=== PATIENT | male | born 2000 | race Caucasian/White ===

== ENCOUNTER 2024-05-29 02:51 | Emergency (ER) | payer OTHER, SELFPAY ==
[2024-05-29 03:03] VITALS: BP 118/83
[2024-05-29 03:06] VITALS: BMI 27.3
[2024-05-29 04:00] VITALS: BP 100/65
[2024-05-29 05:00] VITALS: BP 118/66
[2024-05-29 06:00] VITALS: BP 110/64
--- NOTE | 2024-05-29 06:07 | ED.GENMED ---
History of Present Illness
General
Chief Complaint: Alcohol Problem
Source: patient
Exam Limitations: none
Time Seen by Provider: 05/29/24 02:55
Nursing documentation reviewed up to this point in time: agreed with
History of Present Illness
History of Present Illness:
Pleasant 23-year-old male that presents with acute alcohol intoxication. Patient was found sitting on the sidewalk covered in vomit. Patient requested to come to the hospital. Patient's friends called 911. Patient denies any head injury or loss
of consciousness.
Review of Systems
Review of Systems
Allergies reviewed?: Yes
All Other Systems: ROS reviewed and negative except as documented in HPI and ROS
Constitutional: Reports no symptoms
EENT: Reports no symptoms
Respiratory: Reports no symptoms
Cardiac: Reports no symptoms
ABD/GI: Reports nausea and vomiting
: Reports no symptoms
Musculoskeletal: Reports no symptoms
Skin: Reports no symptoms
Neurological: Reports no symptoms
Endocrine: Reports no symptoms
Hematologic/Lymphatic: Reports no symptoms
Psychiatric: Reports anxiety
Phy Exam
General Physical Exam
General Presentation: well appearing
General Skin: warm and dry
General Habitus: normal
General Mental: alert and appears intoxicated
General Hydration: appears well hydrated
ENT Exam
ENT Exam: EOMI, pharynx normal, neck supple and normocephalic
Eye Exam
Eye Exam: PERRL, cornea clear and conjunctiva normal
Cardiovascular Exam
Cardiovascular Exam: regular rate/rhythm, no edema, no murmur and normal peripheral pulses
Pulmonary Exam
Pulmonary Exam: lungs clear, no respiratory distress, no rales, no crackles, no rhonchi, no stridor, no wheezing and no cough
Gastrointestinal Exam
Gastrointestinal Exam: normal bowel sounds, non tender, soft, no organomegaly, no pulsatile mass and non distended
Neurological Exam
Neurological Exam: alert, oriented x3, no motor deficits and speech normal
Musculoskeletal Exam
Musculoskeletal Exam: full ROM and no edema
Skin Exam
Skin Exam: normal color, warm/dry, no rash and no petechia
Psychiatric Exam
Psychiatric Exam: normal mood/affect
Scores
Withdrawal Assessment of Alcohol
Withdrawal Assessment Completed?: Not applicable
Course
Vital Signs
Initial and Last Documented VS:
Initial Vital Signs
Temp Pulse Resp BP Pulse Ox
97.3 F 110 18 118/83 97
05/29/24 03:03 05/29/24 03:03 05/29/24 03:03 05/29/24 03:03 05/29/24 03:03
Last Documented Vital Signs
Temp Pulse Resp BP Pulse Ox
97.3 F 90 16 110/64 95
05/29/24 03:03 05/29/24 06:00 05/29/24 06:00 05/29/24 06:00 05/29/24 06:00
*Critical Care Note
Total Time (30-74mins, 75-104mins- exclusive of procedures): Not Applicable
ED Attending Note
-
Portions of this chart may have been created with voice recognition software.� Occasional wrong word or��sound alike� substitutions may have occurred due to the inherent limitations of voice recognition software.
Discharge Plan
Departure
Patient Disposition: Home (Routine Discharge)
Date of Disposition: 05/29/24
Time of Disposition: 06:10
Patient with high blood pressure during this ER visit?: No
Discharge Problem:
Alcohol intoxication
Instructions: Alcohol Use Disorder (DC), BLOOD PRESSURE
Prescriptions:
No Action
Unobtainable
0
Referrals:
[facility] [Outside]
[facility] [Outside]
NONE,* [Family Provider] -
Activity Restrictions/Additional Instructions:
It was a pleasure meeting you and taking part in your care. We hope for your continued healing and wellness.
Please read discharge instructions in their entirety. However, they are for general education and may not describe your exact diagnosis at discharge. Information on your ER visit and medical conditions were discussed with you along with appropriate
follow up information...
If indicated, please take your medications as instructed and indicated on discharge paperwork.
Please schedule a follow up appointment as directed. Call to schedule an appointment
Please return to the emergency department with ANY change in, persisting, or worsening of symptoms. If any of your symptoms do not improve, or persist, or become more severe within 6-12 hours, please return to the emergency department for further
care.
Please return to the emergency department if you develop a headache, neck pain/stiffness, fever greater than 100.4F, chest pain, shortness of breath, persistent nausea, vomiting, slurred speech, difficulty walking, numbness/tingling, weakness, signs
of infection or any other symptoms that are worrisome to you.
If you have any questions or concerns please do not hesitate to call the Hospital at or E-mail me directly at [email or web address]
Interventions
Interventions:
*Risk Screen - Suicide Last Done: 05/29/24 06:18
*General Assessment Last Done: 05/29/24 03:07
*Neglect/Abuse Screening Last Done: 05/29/24 03:08
ED- Fall Risk Assessment Last Done: 05/29/24 06:18
*ED COVID-19 Vaccine History Last Done: 05/29/24 03:07
*Nursing Disposition Last Done: 05/29/24 06:23
ED- Neurological Assessment Last Done: 05/29/24 03:27
ED-Psychological Assessment Last Done: 05/29/24 03:27
Discharge Date and Time
Discharge Date/Time: 05/29/24 06:23
Print Language: ESTONIAN
== END 2024-05-29 06:23 | disposition home or self-care (01) ==
LOC: EMR 02:51
PROVIDERS: EMERGENCY PHYSICIAN Student in an Organized Health Care Education/Training Program
DX: F10.129 Alcohol abuse with intoxication, unspecified (principal); R11.2 Nausea with vomiting, unspecified; Y92.480 Sidewalk as the place of occurrence of the external cause; F41.9 Anxiety disorder, unspecified; Z91.013 Allergy to seafood
CPT/HCPCS: 99283

== ENCOUNTER 2025-09-23 22:27 | Emergency (ER) | payer OTHER, SELFPAY ==
[2025-09-23 22:29] VITALS: BP 134/98
--- NOTE | 2025-09-23 23:12 | ED.GENMED ---
History of Present Illness
<Kati Tracey MD, Resident - Last Filed: 09/24/25 00:30>
General
Chief Complaint: Head Injury
Source: patient
Exam Limitations: none
Time Seen by Provider: 09/23/25 23:03
Nursing documentation reviewed up to this point in time: agreed with
History of Present Illness
History of Present Illness:
25yo M with no significant PMH who presents w scalp laceration following trauma to the head.
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 Had significant bleeding over his face. Denies any LOC. Now has a headache and endorses nausea. No emesis. Denies any changes
to vision/blurry vision or any new focal weakness or numbness. Says that he feels 'slow' mentally. Unsure if he is up to date on his tetanus vaccines, but knows that he had to get them for the (was in the ). Not on any blood
thinners, takes no medications. No trauma elsewhere on the body.
Past History
<Kati Tracey MD, Resident - Last Filed: 09/24/25 00:30>
Past History
ED Past Medical History: None
Review of Systems
<Kati Tracey MD, Resident - Last Filed: 09/24/25 00:30>
Review of Systems
All Other Systems: ROS reviewed and negative except as documented in HPI and ROS
Constitutional: Reports other (feels foggy/slow)
EENT: Reports no symptoms
Respiratory: Reports no symptoms
Cardiac: Reports no symptoms
ABD/GI: Reports nausea
: Reports no symptoms
Musculoskeletal: Reports no symptoms
Skin: Reports other (laceration on L side scalp)
Neurological: Reports headache
Hematologic/Lymphatic: Reports bleeding (from scalp lac )
Psychiatric: Reports no symptoms
Phy Exam
<Kati Tracey MD, Resident - Last Filed: 09/24/25 00:30>
General Physical Exam
General Presentation: well appearing and mild distress
General age: appears stated age
General Skin: warm, dry and other (3cm long laceration on L frontal scalp in hair, moderately deep (no bone visible); with dried blood streaking down face )
General Habitus: normal
General Mental: alert
General Hydration: appears well hydrated
Eye Exam
Eye Exam: EOMI
Cardiovascular Exam
Cardiovascular Exam: regular rate/rhythm and no edema
Pulmonary Exam
Pulmonary Exam: no respiratory distress
Gastrointestinal Exam
Gastrointestinal Exam: non distended
Neurological Exam
Neurological Exam: alert, oriented x3, no motor deficits and speech normal
Musculoskeletal Exam
Musculoskeletal Exam: full ROM
Skin Exam
Skin Exam: normal color and other (laceration as above )
Psychiatric Exam
Psychiatric Exam: normal mood/affect
Course
<Kati Tracey MD, Resident - Last Filed: 09/24/25 00:30>
Vital Signs
Initial and Last Documented VS:
Initial Vital Signs
Temp Pulse Resp BP Pulse Ox
98.7 F 88 20 134/98 98
09/23/25 22:29 09/23/25 22:29 09/23/25 22:29 09/23/25 22:29 09/23/25 22:29
Last Documented Vital Signs
Temp Pulse Resp BP Pulse Ox
98.7 F 88 20 134/98 98
09/23/25 22:29 09/23/25 22:29 09/23/25 22:29 09/23/25 22:29 09/23/25 23:18
<Fanny Corado DO - Last Filed: 09/24/25 00:33>
Vital Signs
Initial and Last Documented VS:
Initial Vital Signs
Temp Pulse Resp BP Pulse Ox
98.7 F 88 20 134/98 98
09/23/25 22:29 09/23/25 22:29 09/23/25 22:29 09/23/25 22:29 09/23/25 22:29
Last Documented Vital Signs
Temp Pulse Resp BP Pulse Ox
98.7 F 88 20 134/98 98
09/23/25 22:29 09/23/25 22:29 09/23/25 22:29 09/23/25 22:29 09/23/25 23:18
Procedures
<Kati Tracey MD, Resident - Last Filed: 09/24/25 00:30>
Laceration Closure
Left Anterior Scalp:
Status of Wound: clean
Size of Wound in cm: 3
Description of Wound Edges: sharp
Preparation: cleaned with saline
Anesthesia: 1% Lidocaine with epi and added Na Bicarb to local
Type of Closure: single layer closure
Skin Closure Material: skin brook
Additional information:
5 brook
<Kati Tracey MD, Resident - Last Filed: 09/24/25 00:30>
MDM/Problems Addressed
Differential Diagnosis Includes:
Laceration to L frontal scalp
Concussion
NEXUS CT score 0, unlikely ICH, not on blood thinners, no focal weakness/numbness
MDM/Problems Addressed:
- Wound cleaning & laceration repair with brook
- Will discharge with bacitracin ointment
- Defer tetanus booster b/c patient last received prior to 4.5yrs ago
- Defer head imaging
<Kati Tracey MD, Resident - Last Filed: 09/24/25 00:30>
*Pulse Oximetry
SaO2: 98
Oxygen Mode of Delivery: Room air
Patient hypoxic: not evaluated
*Critical Care Note
Total Time (30-74mins, 75-104mins- exclusive of procedures): Not Applicable
<Kati Tracey MD, Resident - Last Filed: 09/24/25 00:30>
Update Note
Update Note:
Approximated with brook after irrigating with sterile saline & injecting lido+epi+bicarb
Will discharge with topical bacitracin for infection prevention
ED Attending Note
<Kati Tracey MD, Resident - Last Filed: 09/24/25 00:30>
-
Portions of this chart may have been created with voice recognition software.� Occasional wrong word or��sound alike� substitutions may have occurred due to the inherent limitations of voice recognition software.
<Fanny Corado DO - Last Filed: 09/24/25 00:33>
ED Attending Note
Patient seen and examined by attending physician: Yes
I performed the substantive portion of visit, reviewed & personally made and approve the management plan that is documented in note by myself or LEXI.: Yes
ED Attending Note:
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 He was walking underneath a lifted car and inadvertently struck the top of his head on a metal bolt. No fall, no loss of consciousness. He does note
mild headache, mild nausea but has had no vomiting. No neck nor back pain.
Up-to-date with Tdap having received this 4 years ago.
25-year-old male appears his stated age, bright and alert, pleasant, appears in no acute distress.
HEENT: Left frontal scalp has a 3 cm horizontal laceration, full skin thickness to superficial subcutaneous depth, no active bleeding. Mild local tenderness to palpation. No palpable bony tenderness nor palpable bony abnormality.
Neck is supple, nontender. Full range of motion without difficulty nor pain.
Awake alert and oriented x 3. No focal neurodeficits. Gait is dempsey and steady.
Staple repair of scalp laceration by nutrition internship under my direct supervision and guidance.
Discussed routine wound care. Local bacitracin.
As this is a work related injury recommend he follow-up with his occupational health provider.
Discharge Plan
Departure
Patient Disposition: Home (Routine Discharge)
Date of Disposition: 09/24/25
Time of Disposition: 00:16
Patient with high blood pressure during this ER visit?: No
Condition: Good
Covid-19: Not Applicable
Discharge Problem:
Laceration of scalp
Instructions: Laceration Repair With Brook (DC)
Prescriptions:
New
bacitracin 500 unit/gram ointment
1 applic topical BID 7 Days Qty: 14 0RF
Referrals:
NONE,* [Family Provider, Internal Medicine]
Activity Restrictions/Additional Instructions:
You were seen for a laceration to the scalp. It was cleaned with sterile saline and closed with brook. Please keep the area clean and dry and follow up with occupational med for staple removal in about 1 week. Apply a thin layer of bacitracin
ointment to the laceration 2x/day for the next week.
Return to the ED if you have worsening redness, swelling, or pus draining from the wound, or if you develop a fever. Also return if you develop changes to your vision, worsening nausea/vomiting, or severe headache.
Interventions
Interventions:
*Risk Screen - Suicide Last Done: 09/23/25 23:47
*General Assessment Last Done: 09/23/25 23:47
*Neglect/Abuse Screening Last Done: 09/23/25 23:47
*ED COVID-19 Vaccine History Last Done: 09/23/25 23:47
*ED Influenza Vaccine History Last Done: 09/23/25 23:47
*Nursing Disposition Last Done: 09/24/25 00:30
ED- Neurological Assessment Last Done: 09/23/25 23:49
ED-Skin Assessment Last Done: 09/23/25 23:49
Discharge Date and Time
Print Language: INDONESIAN
[2025-09-23 23:46] VITALS: BMI 24.4
== END 2025-09-24 00:31 | disposition home or self-care (01) ==
LOC: EMR 22:27
PROVIDERS: EMERGENCY PHYSICIAN Emergency Medicine
DX: S01.01XA Laceration without foreign body of scalp, initial encounter (principal); W22.8XXA Striking against or struck by other objects, initial encounter; Y99.0 Civilian activity done for income or pay
CPT/HCPCS: 12002; 99282